=== PATIENT | male | born 1950 | race Caucasian/White ===

== ENCOUNTER → 2017-03-18 | Outpatient (REF) | payer MEDICARE ==
[2017-03-18 13:30] LABS: BACTERIA, URINE SMALL AMOUNT; HYALINE CAST, URINE NONE SEEN /lpf (0-1); SQUAMOUS EPITHELIAL CELL URINE MOD AMOUNT /hpf (SMALL AMT)
[2017-03-18 13:33] LABS: MICROSCOPIC EXAM PERFORMED
== END ==
LOC: M LAB REF 12:24
PROVIDERS: ATTEND Nurse Practitioner Adult Health
DX: R31.9 Hematuria, unspecified (principal)

== ENCOUNTER → 2021-02-27 | Outpatient (REF) | payer MEDICARE ==
[2021-02-27 13:40] LABS: BACTERIA, URINE AUTO NEGATIVE (NEGATIVE); MUCUS, URINE SMALL (NEGATIVE); RBC, URINE AUTO 3 /HPF (0-3); SQUAMOUS EPITHELIAL CELL UR AU 0 /HPF (0-6); WBC, URINE AUTO 3 /HPF (0-3)
== END ==
LOC: M LAB REF 12:15
PROVIDERS: ATTEND Nurse Practitioner Adult Health
DX: R31.9 Hematuria, unspecified (principal)

== ENCOUNTER → 2022-02-26 | Outpatient (REF) | payer MEDICARE ==
[2022-02-26 16:40] LABS: BACTERIA, URINE AUTO NEGATIVE (NEGATIVE); MUCUS, URINE SMALL (NEGATIVE); RBC, URINE AUTO 3 /HPF (0-3); SQUAMOUS EPITHELIAL CELL UR AU 0 /HPF (0-6); WBC, URINE AUTO 0 /HPF (0-3)
== END ==
LOC: M LAB REF 16:10
PROVIDERS: ATTEND Nurse Practitioner Adult Health
DX: R31.9 Hematuria, unspecified (principal)

== ENCOUNTER → 2023-03-13 | Outpatient (REF) | payer MEDICARE | LOC: M LAB REF 12:09 | PROVIDERS: ATTEND Nurse Practitioner Adult Health | DX: R31.9 Hematuria, unspecified (principal); Z13.89 Encounter for screening for other disorder ==

== ENCOUNTER 2023-04-21 08:37 | Day surgery (SDC) | payer MEDICARE ==
[~2023-04-21] VITALS: Ht 177.8 cm; Wt 92.4 kg
[~2023-04-21 08:37] MED LIST: AMLO1TAB24 PO; ATOR40TA75 PO; CEFUROXIME 1MG/0.1ML INTRACAMERAL INJ As Ordered ONE; CYCLOPENTOLATE 1% OPHTH SOLN 2ML BTL OS SCH; LIDOCAINE 1% SDV 5ML VIAL As Ordered ONE; LISI20TA37 PO; OFLOXACIN 0.3 % (OCUFLOX) OPTH SOL 5ML OS SCH; PHENYLEPHRINE 2.5% OPHTH SOL 2ML OS SCH; PROPARACAINE 0.5% OPHTH SOL 15ML OS ONE; TROPICAMIDE 1% OPHTH SOLN 15ML OS SCH
[2023-04-21] MEDS ORDERED: MIDAZOLAM INJ 2MG/2ML VIAL As Ordered ONE (10:00)
[2023-04-21] MEDS ORDERED: fentaNYL 100 MCG/2 ML INJECTION As Ordered ONE (10:00)
[2023-04-21] MEDS ORDERED: BSS IRR 500ML/OMIDRIA 4ML IRR BAG (OR ONLY) As Ordered ONE (10:38)
[2023-04-21 11:44] VITALS: BP 174/86; TEMP 97.3; O2SAT 98
== END 2023-04-21 12:00 | disposition home or self-care (01) ==
LOC: M SDC 08:37
PROVIDERS: ATTEND Ophthalmology
DX: H25.12 Age-related nuclear cataract, left eye (principal); I10 Essential (primary) hypertension; Z79.899 Other long term (current) drug therapy
CPT/HCPCS: 66984; J0697; J1097; J2250; J3010; V2632

== ENCOUNTER → 2025-03-20 | Outpatient (REF) | payer MEDICARE ==
[~2025-03-20] MED LIST changes: -CEFUROXIME 1MG/0.1ML INTRACAMERAL INJ As Ordered ONE; -CYCLOPENTOLATE 1% OPHTH SOLN 2ML BTL OS SCH; -LIDOCAINE 1% SDV 5ML VIAL As Ordered ONE; -OFLOXACIN 0.3 % (OCUFLOX) OPTH SOL 5ML OS SCH; -PHENYLEPHRINE 2.5% OPHTH SOL 2ML OS SCH; -PROPARACAINE 0.5% OPHTH SOL 15ML OS ONE; -TROPICAMIDE 1% OPHTH SOLN 15ML OS SCH
[2025-03-25 17:12] LABS: ALDOS/RENIN RATIO 44.0 Ratio (0.9-28.9); ALDOSTERONE LC 11.0 ng/dL; RENIN ACTIVITY 0.25 ng/mL/h (0.25-5.82)
== END ==
LOC: M LAB REF 12:09
PROVIDERS: ATTEND Internal Medicine
DX: E87.0 Hyperosmolality and hypernatremia (principal)

== ENCOUNTER → 2025-04-14 | Outpatient (CLI) | payer MEDICARE ==
[~2025-04-14] MED LIST changes: +ISOVUE-370 76% 100 ML VIAL ONE
== END ==
LOC: M PLAIMG 09:14
PROVIDERS: ATTEND Internal Medicine
DX: E26.09 Other primary hyperaldosteronism (principal); K76.89 Other specified diseases of liver; N28.1 Cyst of kidney, acquired
CPT/HCPCS: 74170; Q9967

== ENCOUNTER → 2025-05-03 | Outpatient (REF) | payer MEDICARE ==
[~2025-05-03] MED LIST changes: -ISOVUE-370 76% 100 ML VIAL ONE
[2025-05-03 15:29] LABS: C REACTIVE PROTEIN QUANTITATIV 0.86 MG/DL (<1.0)
[2025-05-03 15:30] LABS: RHEUMATOID FACTOR QUANT 4.8 IU/ML (<14)
== END ==
LOC: M LAB REF 14:23
PROVIDERS: ATTEND Internal Medicine
DX: M25.50 Pain in unspecified joint (principal)

== ENCOUNTER → 2025-05-24 | Outpatient (CLI) | payer MEDICARE | LOC: M WUC 11:23 | PROVIDERS: ATTEND Internal Medicine | DX: M25.562 Pain in left knee (principal); M25.561 Pain in right knee ==